=== PATIENT | female | born 1985 ===

== ENCOUNTER 2016-10-06 16:31 | Emergency (ER) | payer OTHER ==
[2016-10-06 16:52] VITALS: RESP 18; O2SAT 100
--- NOTE | 2016-10-06 17:20 | ED PDOC ---
HPI: General Adult Time Seen by Provider: 10/06/16 17:07 Chief Complaint (Nursing): Female Genitourinary Chief Complaint (Provider): flank pain History Per: Patient Additional Complaint(s): 30 year old female presents to ED with pain to RLQ region for the past 3 days. Patient describes the pain as a dull ache and states it radiates to the right side of her back. She denies any dysuria or hematuria. No fever or chills. Patient has had mild nausea with no vomiting. Patient denies any vaginal bleeding or discharge and has no concern for an STD. She rates current pain as an 8 out of 10. Past Medical History Reviewed: Historical Data, Nursing Documentation, Vital Signs Vital Signs: Last Vital Signs Temp 98.7 F 10/06/16 16:48 Pulse 76 10/06/16 16:48 Resp 18 10/06/16 16:48 BP 141/79 10/06/16 16:48 Pulse Ox 100 10/06/16 17:54 - Medical History PMH: No Chronic Diseases - Surgical History Other surgeries: cervical biopsy - Family History Family History: States: No Known Family Hx - Living Arrangements Living Arrangements: With Family - Social History Current smoker - smoking cessation education provided: No Alcohol: None Drugs: Denies - Home Medications Home Medications: Ambulatory Orders Medication Instructions Recorded Ibuprofen [Motrin] 600 mg PO Q6 PRN #15 tab 10/06/16 - Allergies Allergies/Adverse Reactions: Allergies Allergy/AdvReac Type Severity Reaction Status Date / Time No Known Allergies Allergy Verified 10/06/16 16:48 Review of Systems ROS Statement: Except As Marked, All Systems Reviewed And Found Negative Constitutional: Negative for: Fever, Chills Respiratory: Negative for: Cough Gastrointestinal: Positive for: Nausea, Abdominal Pain (RLQ). Negative for: Vomiting, Diarrhea Genitourinary Female: Positive for: Pelvic Pain (RLQ). Negative for: Dysuria, Hematuria, Vaginal Discharge, Vaginal Bleeding Physical Exam - Reviewed Nursing Documentation Reviewed: Yes Vital Signs Reviewed: Yes - Physical Exam Appears: Positive for: Well, Non-toxic, No Acute Distress Skin: Negative for: Rash Eye Exam: Positive for: Normal appearance Cardiovascular/Chest: Positive for: Regular Rate, Rhythm Respiratory: Positive for: Normal Breath Sounds Gastrointestinal/Abdominal: Positive for: Tenderness (RLQ). Negative for: Distended, Guarding, Rebound Back: Negative for: L CVA Tenderness, R CVA Tenderness Extremity: Positive for: Normal ROM Neurologic/Psych: Positive for: Alert, Oriented - Laboratory Results Result Diagrams: 10/06/16 18:00 10/06/16 19:00 Urine POC: Negative Urine dip results: Positive for: Ketones (trace). Negative for: Leukocyte Esterase, Blood, Nitrate, Glucose, Bilirubin, Protein - ECG O2 Sat by Pulse Oximetry: 100 Pulse Ox Interpretation: Normal - Other Rad TV US X-Ray: Read By Radiologist X-Ray Interpretation: see below CT abd and pelvis X-Ray: Read By Radiologist X-Ray Interpretation: see below Medical Decision Making Medical Decision Makin30 year old with right sided abdominal pain Plan: test Urine dip CBC CMP IVF IV zofran IV toradol US: FINDINGS: Uterus: Uterus measures approximately 6.4 x 3.9 x 5.4 cm. Endometrium measures approximately 9.5 mm in width. Right ovary: Right ovary measures approximately 3.76 x 2.32 x 2.68 cm. There are multiple small follicles. There is a corpus luteum. There is expected blood flow on Doppler imaging Left ovary: Left ovary measures approximately 3.48 x 1.22 x 1.30 cm. There are multiple small follicles. There is intraovarian blood flow. Free fluid: There is a small amount of free fluid in the cul-de-sac. There is fluid in the both adnexa IMPRESSION: Free fluid in the cul-de-sac and both adnexa, physiologic versus cyst rupture; corpus luteum in the right ovary. CT: IMPRESSION: Moderate amount of free fluid in the pelvis suggests recent cyst rupture; right corpus luteum; fatty liver, no acute solid visceral abnormality; mild ileus, possible constipation. Patient feels better after Toradol dose was given. Patient is aware of all diagnostic testing results. All questions answered. Patient was given prescription for Motrin and she was referred to women's clinic for follow-up. Disposition - Clinical Impression Clinical Impression: Pelvic pain, Ruptured cyst of ovary - Patient ED Disposition Is Patient to be Admitted: No Counseled Patient/Family Regarding: Studies Performed, Diagnosis, Need For Followup, Rx Given - Disposition Referrals: [facility] [Outside] Disposition: Routine/Home Disposition Time: 19:49 Condition: STABLE Additional Instructions: Take rx meds as directed as needed for pain. Follow up with women's clinic. Prescriptions: Ibuprofen [Motrin] 600 mg PO Q6 PRN #15 tab PRN Reason: Pain, Moderate (4-7) Instructions: Pelvic Pain in Women (ED), Ovarian Cyst (ED) Print Language: JAMAICAN Results - Lab Results Lab Results: 10/06/16 10/06/16 10/06/16 19:00 18:00 18:00 WBC 8.2 RBC 4.38 Hgb 12.8 Hct 38.6 MCV 88.3 MCH 29.3 MCHC 33.2 RDW 14.3 Plt Count 254 MPV 9.8 Neut % (Auto) 71.6 Lymph % (Auto) 19.8 L [place] % (Auto) 7.2 Eos % (Auto) 0.6 Baso % (Auto) 0.8 Neut # 5.9 Lymph # 1.6 [place] # 0.6 Eos # 0.1 Baso # 0.1 Sodium 141 Potassium 4.8 5.1 H Chloride 104 Carbon Dioxide 26 Anion Gap 16 BUN 11 Creatinine 0.6 L Est GFR ( Amer) > 60 Est GFR (Non-Af Amer) > 60 Random Glucose 90 Calcium 9.2 Total Bilirubin 0.8 AST 38 H ALT 49 Alkaline Phosphatase 51 Total Protein 8.1 Albumin 4.6 Globulin 3.4 Albumin/Globulin Ratio 1.3 Lipase 84
[2016-10-06] MEDS ORDERED: Sodium Chloride 0.9% 1,000 ML IV STA (17:52)
[2016-10-06 18:15] LABS: BASO # 0.1 K/uL (0.0-0.2); BASO % 0.8 % (0.0-2.0); EOS # 0.1 K/uL (0.0-0.7); EOS % 0.6 % (0.0-4.0); HEMOGLOBIN 12.8 g/dL (12.0-16.0); LYMPH # 1.6 K/uL (1.0-4.3); LYMPH % 19.8 % (20.0-40.0); MEAN CELL VOLUME 88.3 fl (81.0-99.0); MEAN CORPUSCULAR HEMOGLOBIN 29.3 pg (27.0-31.0); MEAN CORPUSCULAR HGB CONC 33.2 g/dL (33.0-37.0); MEAN PLATELET VOLUME 9.8 fl (7.2-11.7); MONO # 0.6 K/uL (0.0-0.8); MONO % 7.2 % (0.0-10.0); NEUT # 5.9 K/uL (1.8-7.0); NEUT % 71.6 % (50.0-75.0); RBC 4.38 Mil/uL (3.80-5.20); RED CELL DISTRIBUTION WIDTH 14.3 % (11.5-14.5); WHITE BLOOD COUNT 8.2 K/uL (4.8-10.8)
[2016-10-06 18:26] LABS: ALB/GLOB RATIO 1.3 (1.0-2.1); ALBUMIN 4.6 g/dL (3.5-5.0); ALT/SGPT 49 U/L (9-52); AST/SGOT 38 U/L (14-36); BLOOD UREA NITROGEN 11 mg/dl (7-17); CALCIUM 9.2 mg/dL (8.4-10.2); GFR AFRICAN-AMERICAN > 60; GFR NON-AFRICAN AMERICAN > 60; LIPASE 84 U/L (23-300)
[2016-10-06] MEDS ORDERED: Iohexol 300 100 ML IJ ONE (18:55)
[2016-10-06] MEDS ORDERED: Sodium Chloride 0.9% 100 ML ONE (18:56)
[2016-10-06 20:12] VITALS: BP 103/60; PULSE 82; TEMP 98.2
--- NOTE | 2016-10-07 09:38 | CT ---
PROCEDURE: CT scan abdomen and pelvis dated 10/06/2016 HISTORY: Right lower quadrant. . COMPARISON: Correlation made with concurrent pelvic ultrasound TECHNIQUE: Contiguous axial images of the abdomen and pelvis performed following intravenous injection of approximately 95 cc Omnipaque 300 contrast material. Additional 2 dimensional coronal and sagittal reformats generated. Radiation dose: Total exam DLP = 350.47 mGy-cm. This CT exam was performed using one or more of the following dose reduction techniques: Automated exposure control, adjustment of the mA and/or kV according to patient size, and/or use of iterative reconstruction technique. FINDINGS: LOWER THORAX: Minor passive atelectasis both posterior lower lung delgado. There is a small approximately 6 mm subpleural elliptical shaped nodular density left posterior sulcus which could represent some post inflammatory sequela however followup nonemergent CT scan of the chest is recommended for further evaluation and serve as baseline for comparison studies. No evidence of effusion or basilar pneumothorax. Heart size normal. No significant pericardial effusion. Small hiatal hernia. LIVER: Liver is upper limits of normal/ borderline enlarged measuring nearly 18 cm in CC dimension. Moderate fatty hepatic infiltration. No obvious hepatic mass or collection. Portal and splenic veins are opacified. GALLBLADDER AND BILE DUCTS: Gallbladder is physiologically distended. No evidence of intraluminal gallbladder calculi. PANCREAS: Unremarkable. No mass. No ductal dilatation. SPLEEN: Spleen exhibits normal size and attenuation pattern without mass collection or calcification. ADRENALS: No adrenal lesions. KIDNEYS AND URETERS: Kidneys demonstrate symmetric nephrograms. No evidence of nephrolithiasis or hydronephrosis. BLADDER: Urinary bladder is incompletely distended which may account for slight thick-walled appearance. Possibility of a cystitis not excluded. No evidence of intraluminal urinary bladder calculi. REPRODUCTIVE: Uterus appears unremarkable. There appears to be a small involuting right adnexal cyst measuring approximately 2.16 mm in transverse dimension. Additionally, there is small - moderate amount of free fluid within the pelvis. Findings could represent ruptured ovarian cyst. Please refer to concurrent pelvic ultrasound and corresponding report for additional details. APPENDIX: Normal-appearing predominately air-filled appendix best seen on axial image number [id number]. No periappendiceal inflammatory changes. BOWEL: Evaluation of the bowel is limited due to the lack of oral contrast material. Stomach is incompletely distended. Visualized loops of small bowel exhibit normal contour and caliber. No evidence acute mechanical small bowel obstruction. Moderate amount of stool is seen throughout the cecum ascending and transverse colon consistent with constipation. PERITONEUM: As above. No free intraperitoneal air LYMPH NODES: No significant enlarged/bulky adenopathy VASCULATURE: Unremarkable. No aortic aneurysm. BONES: No fracture or destructive lesion. OTHER FINDINGS: None. IMPRESSION: Small involuting cyst right ovary with small to moderate amount of free fluid in the pelvis. No evidence of acute appendicitis. Findings consistent with mild constipation as above. Borderline hepatomegaly with fatty hepatic infiltration. 6 mm subpleural nodule left posterior sulcus. Recommend followup CT scan chest for further evaluation and to serve as baseline for comparison study. Note that this report was placed in PA review folder for followup.
--- NOTE | 2016-10-07 10:25 | US ---
HISTORY: right side pelvic pain COMPARISON: None available. TECHNIQUE: Right-sided pelvic pain for 3 days FINDINGS: UTERUS: Measures 6.4 x 5.4 x 3.8 cm. Anteverted, normal in size and appearance. No fibroid or other mass lesion seen. ENDOMETRIUM: Measures 10 mm in diameter. Unremarkable. CERVIX: No cervical abnormality identified. RIGHT OVARY: Measures 3.7 x 2.6 x 2.3 cm. No solid mass. Normal flow. There is a 2.1 x 2.1 x 1.6 cm complicated/hemorrhagic/ corpus luteum cyst. LEFT OVARY: Measures 3.4 x 1.3 x 1.2 cm. No solid mass. Normal flow. FREE FLUID: There is a moderate amount of free fluid in the pelvis. OTHER FINDINGS: None. IMPRESSION: 2.1 cm complicated/hemorrhagic/ corpus luteum cyst in the right ovary. Moderate amount of free fluid in the pelvis could be physiologic or related to cyst rupture. A preliminary report was provided by [facility].
== END 2016-10-06 20:14 | disposition home or self-care (01) ==
LOC: H.ER 16:31
DX: N83.201 Unspecified ovarian cyst, right side (principal)

== ENCOUNTER 2016-12-07 14:16 | Emergency (ER) | payer SELFPAY ==
[2016-12-07 14:24] VITALS: BP 129/79; PULSE 88; RESP 16; TEMP 98.9; O2SAT 100
--- NOTE | 2016-12-07 15:37 | ED PDOC ---
HPI: Abdomen History Per: Patient ([employer] Interpretor Telecome ([id number]). Pt is a 31F , 12 weeks presenting to ED with a 3 day history of intermittent abdominal pain. Pain is described as sharp, localized to the abdomen, non radiating, 8/10 in severity, no aggravating or alleviating factors. Pt denies fever, chills, dysuria, back pain, vaginal bleeding or discharge, diarrhea. On ROS, patient states she has occassional [place] and few episodes of vomiting. ) Abnormal Vaginal Bleeding: No : 3 Para: 2 <Sydney Martinez - Last Filed: 12/07/16 18:47> <Gaby Preston - Last Filed: 12/07/16 19:04> Time Seen by Provider: 12/07/16 14:44 Chief Complaint (Nursing): Abdominal Pain Supervising Attending Note - Supervising Attending Note The Documented history was done by the: Physician Applique Sewer, Attending Physician The documented physical exam was done by the: Physician Applique Sewer, Attending Physician The documented procedures were done by the: Physician Applique Sewer, Attending Physician - Attestation: I have personally seen and examined this patient.: Yes I have fully participated in the care of the patient.: Yes I have reviewed all pertinent clinical information: Yes <Gaby Preston - Last Filed: 12/07/16 19:04> Past Medical History Reviewed: Historical Data, Nursing Documentation, Vital Signs - Medical History Other PMH: No Hx of STD's. No Hx of miscarriages - Surgical History Surgical History: (2 prior C sections. No complications) - Family History Family History: States: No Known Family Hx - Living Arrangements Living Arrangements: With Family - Social History Current smoker - smoking cessation education provided: No Alcohol: None Drugs: Denies <Sydney Martinez - Last Filed: 12/07/16 18:47> <Gaby Preston - Last Filed: 12/07/16 19:04> Vital Signs: Last Vital Signs Temp 98.9 F 12/07/16 14:21 Pulse 88 12/07/16 14:21 Resp 16 12/07/16 14:21 BP 129/79 12/07/16 14:21 Pulse Ox 100 12/07/16 18:48 - Home Medications Home Medications: Ambulatory Orders Medication Instructions Recorded Ibuprofen [Motrin] 600 mg PO Q6 PRN #15 tab 10/06/16 - Allergies Allergies/Adverse Reactions: Allergies Allergy/AdvReac Type Severity Reaction Status Date / Time No Known Allergies Allergy Verified 12/07/16 14:20 Review of Systems ROS Statement: Except As Marked, All Systems Reviewed And Found Negative Constitutional: Negative for: Fever, Chills Cardiovascular: Negative for: Chest Pain, Palpitations, Edema Respiratory: Negative for: Cough, Shortness of Breath Gastrointestinal: Positive for: Nausea, Vomiting, Abdominal Pain. Negative for : Diarrhea Genitourinary Female: Negative for: Dysuria, Frequency, Hematuria, Vaginal Discharge, Vaginal Bleeding Skin: Negative for: Rash, Lesions Neurological: Negative for: Weakness <Sydney Martinez - Last Filed: 12/07/16 18:47> Physical Exam - Reviewed Nursing Documentation Reviewed: Yes Vital Signs Reviewed: Yes - Physical Exam Appears: Positive for: Well, Non-toxic, No Acute Distress Head Exam: Positive for: ATRAUMATIC, NORMAL INSPECTION, NORMOCEPHALIC Skin: Positive for: Normal Color, Warm, DRY Eye Exam: Positive for: EOMI, Normal appearance, PERRL ENT: Positive for: Normal ENT Inspection Neck: Positive for: Normal, Painless ROM Cardiovascular/Chest: Positive for: Regular Rate, Rhythm Respiratory: Positive for: Normal Breath Sounds. Negative for: Crackles Pulses-Radial (L): 2+ Pulses-Radial (R): 2+ Gastrointestinal/Abdominal: Positive for: Normal Exam, Bowel Sounds, Soft, Tenderness (Mild Suprapubic tenderness on palpation). Negative for: Organomegaly, Distended, Guarding, Rebound Back: Positive for: Normal Inspection. Negative for: L CVA Tenderness, R CVA Tenderness Extremity: Positive for: Normal ROM Neurologic/Psych: Positive for: Alert, Oriented <Sydney Martinez - Last Filed: 12/07/16 18:47> - Laboratory Results Result Diagrams: 12/07/16 13:45 12/07/16 15:45 Urine dip results: Negative for: Leukocyte Esterase, Nitrate - ECG O2 Sat by Pulse Oximetry: 100 - Progress Re-evaluation Time: 17:46 (Pt seen lying in bed comforable. No complaints) <Sydney Martinez - Last Filed: 12/07/16 18:47> - Laboratory Results Result Diagrams: 12/07/16 13:45 12/07/16 15:45 <Gaby Preston - Last Filed: 12/07/16 19:04> Medical Decision Making <Sydney Martinez - Last Filed: 12/07/16 18:47> <Gaby Preston - Last Filed: 12/07/16 19:04> Medical Decision Making: Pt is a 31 yo female 12 weeks as confirmed by Urine test (no US to date) presenting with a 3 days history of lower abdominal pain. ED Course: CBC- NML BNP- NML Quantitative BhCG- 67,668 UA- NML OB Transabdominal US (Sydney Martinez) Disposition - Disposition Disposition Time: 18:48 <Sydney Martinez - Last Filed: 12/07/16 18:47> - Patient ED Disposition Is Patient to be Admitted: Transfer of Care Counseled Patient/Family Regarding: Studies Performed, Diagnosis - Disposition Disposition: Transfer of Care Patient Signed Over To: Jcarlos Magana <Gaby Preston - Last Filed: 12/07/16 19:04> - Clinical Impression Clinical Impression: Abdominal pain during - Disposition Condition: FAIR
[2016-12-07 15:55] LABS: BASO % 0.4 % (0.0-2.0); EOS % 0.4 % (0.0-4.0); HEMATOCRIT 35.8 % (34.0-47.0); LYMPH # 1.7 K/uL (1.0-4.3); LYMPH % 17.8 % (20.0-40.0); MEAN CELL VOLUME 88.7 fl (81.0-99.0); MEAN CORPUSCULAR HEMOGLOBIN 29.6 pg (27.0-31.0); MEAN CORPUSCULAR HGB CONC 33.4 g/dL (33.0-37.0); MEAN PLATELET VOLUME 8.8 fl (7.2-11.7); MONO # 0.8 K/uL (0.0-0.8); MONO % 8.3 % (0.0-10.0); NEUT % 73.1 % (50.0-75.0); RED CELL DISTRIBUTION WIDTH 13.8 % (11.5-14.5); WHITE BLOOD COUNT 9.6 K/uL (4.8-10.8)
[2016-12-07 16:06] LABS: BLOOD UREA NITROGEN 6 mg/dl (7-17); CALCIUM 8.8 mg/dL (8.4-10.2); CARBON DIOXIDE 23 mmol/L (22-30); CHLORIDE 102 mmol/L (98-107); GFR AFRICAN-AMERICAN > 60; GLUCOSE,RANDOM 88 mg/dL (65-105); SODIUM 136 mmol/l (132-148)
--- NOTE | 2016-12-07 21:09 | ED PDOC ---
- Laboratory Results Result Diagrams: 12/07/16 13:45 12/07/16 15:45 - ECG O2 Sat by Pulse Oximetry: 100 Medical Decision Making Medical Decision Makin:00: Transfer of staff pending US. [facility] (Former[facility]) Preliminary Radiology Report Call: [phone] assistance Online chat: [email or web address] Patient Name: JUN CUNNINGHAM (Age): 1985 31 Gender: F Date of Exam: 12/07/2016 Referring Physician: Sydney Martinez # of Images: 137 Ordered As: US OB LIMITED SEARCH ENGINE OPTIMIZATION STRATEGIST (QA) DISCREPANCY? If there is a discrepancy between the preliminary and final interpretation, please notify [email or web address] via [email or web address]. If you do not have access to our QA portal, call our QA team at [phone] CONFIDENTIALITY STATEMENT This report is intended only for the use of the referring physician, and only in accordance with law, If you received this in error, call [phone] Page 1 of 1 EXAM: US Uterus, Limited CLINICAL HISTORY: 31 years old, female; Pain; complicated by abdominal or pelvic pain; Lower; Second trimester; Gestational age or lmp: See us ws; ; Additional info: 12 weeks with abdominal pain TECHNIQUE: Real-time ultrasound of the maternal uterus (limited) with image documentation. COMPARISON: No relevant prior studies available. FINDINGS: Fetus: Single viable intrauterine . Estimated gestational age by ultrasound is 13 weeks 3 days. Estimated weight is 72 g. Position: Fetus in transverse position. Heart rate: Heart rate is 140 beats per minute. Placenta: Placenta is anterior and unremarkable. No placenta previa. Adnexa: Bilateral ovaries are not seen. IMPRESSION: Single viable intrauterine . No acute findings. Thank you for allowing us to participate in the care of your patient. Dictated and Authenticated by: Johny Pat MD 12/07/2016 8:48 PM Eastern Time ([place] & [place]) Discussed results with patient. She has an appointment with her [facility] and was encouraged to keep it. All questions answered. Attestation Scribe Attestation: Documented by Ashley Ahumada acting as a scribe for Jcarlos Magana MD. MD Herrera Attestation: All medical record entries made by the Scribe were at my direction and personally dictated by me. I have reviewed the chart and agree that the record accurately reflects my personal performance of the history, physical exam, medical decision making, and the department course for this patient. I have also personally directed, reviewed, and agree with the discharge instructions and disposition. Disposition Doctor Will See Patient In The: Office Counseled Patient/Family Regarding: Studies Performed, Diagnosis, Need For Followup - Clinical Impression Clinical Impression: Abdominal pain during - POA Present On Arrival: None - Disposition Disposition: Routine/Home Disposition Time: 21:08 Condition: STABLE Instructions: Abdominal Pain in (ED) Print Language: MALAY
--- NOTE | 2016-12-08 08:48 | US ---
PROCEDURE: Obstetrical ultrasound examination HISTORY: 12 weeks with abdominal pain COMPARISON: Not available TECHNIQUE: Transabdominal FINDINGS: There is a single live intrauterine gestation in transverse lie. The heart rate is 139 beats per minute. A normal quantity of amniotic fluid is identified, grossly. A normal anterior placenta is identified. There is no evidence of placenta previa. The cervix is closed and measures 4.4 cm in length. biometry yields a gestational age of 13 weeks 3 days. The RADHA is 06/11/2017. The EFW is 71.52 g. anatomy cannot be assessed at this early stage of . The ovaries are not visualized at this time. IMPRESSION: Single live intrauterine gestation of approximately 13 weeks 3 days. heart rate 139. No previa. Anterior placenta. Preliminary interpretation of this examination was reported by [facility] at 8:48 p.m. on 12/07/2016. There is concurrence of this report with the preliminary interpretation.
== END 2016-12-07 21:40 | disposition home or self-care (01) ==
LOC: H.ER 14:16
DX: O26.891 Other specified pregnancy related conditions, first trimester (principal)